=== PATIENT | male | born 1970 | race Caucasian/White ===

== ENCOUNTER 2017-07-15 09:39 | Emergency (ER) | payer BC ==
[~2017-07-15] VITALS: Ht 167.6 cm; Wt 77.0 kg
[2017-07-15] MEDS ORDERED: OMEP20TA PO (09:51)
[2017-07-15 09:57] VITALS: BP 146/88; PULSE 77; RESP 20; TEMP 98.4; O2SAT 96
--- NOTE | 2017-07-15 10:15 | PD ---
HPI Chief Complaint: Injury Time Seen by Provider: 10:08 Travel History International Travel<30 days: No Contact w/Intl Traveler<30days: No Traveled to known affect area: No History of Present Illness HPI This patient complains of injury to his left foot. Duration 3 days. Severity is moderate. He has pain with weightbearing. He had a pile of heavy construction lumbar fall onto the top of his left foot. PFSH Past Medical History GERD: Yes Influenza Vaccination: No Social History Alcohol Use: Yes (DAILY) Tobacco Use: Yes (CIGARS DAILY) Substance Use: No Allergies-Medications (Allergen,Severity, Reaction): Coded Allergies: No Known Allergies (Unverified , 08/05/15) Reported Meds & Prescriptions Reported Meds & Active Scripts Active Reported Omeprazole 20 Mg Tab 20 Mg PO DAILY Review of Systems General / Constitutional: No: Fever HENT: No: Headaches Cardiovascular: No: Chest Pain or Discomfort Physical Exam Narrative SKIN: Focused skin assessment reveals no rash or ulcers. Skin is warm and dry. Palpation shows no induration or nodules. Psych: Normal mood and affect. Normal insight and judgment. Left foot: Has tenderness and swelling to the dorsum of the foot. There is a scabbed wound. No malleoli tenderness or tibial tenderness Data Data Last Documented VS Vital Signs Date Time Temp Pulse Resp B/P (MAP) Pulse Ox O2 Delivery O2 Flow Rate FiO2 07/15/17 09:57 98.4 77 20 146/88 (107) 96 Orders Orders Foot, Complete ([id number]) (07/15/17 ) [facility] Medical Decision Making Medical Screen Exam Complete: Yes Emergency Medical Condition: Yes Medical Record Reviewed: Yes Differential Diagnosis Fracture, dislocation, contusion Narrative Course I have reviewed the patient's electronic medical record. I reviewed his left foot x-rays which show no fracture Recommend ice elevation and Advil limit weightbearing etc. 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 Med/Other Pt SpecificInfo: Other Disposition: 01 DISCHARGE HOME Condition: Stable Travis Huston MD Jul 15, 2017 10:15
--- NOTE | 2017-07-15 10:36 | RADRPT ---
EXAM DATE/TIME: 07/15/2017 10:17 [place] COMPARISON: No previous studies available for comparison. INDICATIONS : Left mid foot pain, dropped a piece of wood on left foot saturday. MEDICAL HISTORY : None. SURGICAL HISTORY : None. ENCOUNTER: Initial ACUITY: 3 days PAIN SCORE: 5/10 LOCATION: Left mid foot FINDINGS: Three view examination of the left foot demonstrates soft tissue swelling dorsally without dislocatio n, or fracture. The tarsal bones appear intact. Moderate size plantar calcaneal spur. The interpha langeal and metatarsophalangeal joints are intact. The calcaneus is intact. Bony mineralization is normal. CONCLUSION: Soft tissue swelling without fracture. Plantar calcaneal spur. Ravindra Arcos MD on July 15, 2017 at 10:33 Board Certified Radiologist. This report was verified electronically.
== END 2017-07-15 12:15 | disposition home or self-care (01) ==
LOC: PHEFT 09:39
DX: S90.32XA Contusion of left foot, initial encounter (principal); W20.8XXA Other cause of strike by thrown, projected or falling object, initial encounter
CPT/HCPCS: 73630; 99283